=== PATIENT | female | born 1950 | race Caucasian/White ===

== ENCOUNTER → 2018-02-08 | Outpatient (CLI) | payer MEDICARE ==
--- NOTE | 2018-02-08 14:52 | US ---
EXAMINATION TYPE: US venous doppler duplex LE DATE OF EXAM: 02/08/2018 2:28 PM COMPARISON: US CLINICAL HISTORY: M79.605 Pain in left lower leg. SIDE PERFORMED: Bilateral TECHNIQUE: The lower extremity deep venous system is examined utilizing real time linear array sonog nayan with graded compression, doppler sonography and color-flow sonography. VESSELS IMAGED: Common Femoral Vein Deep Femoral Vein Greater Saphenous Vein * Femoral Vein Popliteal Vein Small Saphenous Vein * Proximal Calf Veins (* superficial vessels) Grayscale, color doppler, spectral doppler imaging performed of the deep veins of the lower extremiti es. There is normal flow, compressibility, vascular waveforms. Right Leg: Negative for DVT Left Leg: Negative for DVT IMPRESSION: No sonographic evidence of deep venous thrombosis within either lower extremity.
== END | disposition home or self-care (01) ==
LOC: RADUSWWP 13:57
PROVIDERS: ATTEND Family Medicine
DX: M79.662 Pain in left lower leg (principal)
CPT/HCPCS: 93970

== ENCOUNTER → 2018-11-03 | Outpatient (CLI) | payer MEDICARE ==
[~2018-11-03] MED LIST: REGADENOSON 0.4 MG/5 ML SYRINGE IV ONE
--- NOTE | 2018-11-03 11:21 | P.STRESS ---
- Stress Test Note Stress Test Results/Findings: Exam Performed: NM stress lexiscan cardiolite Exam Date: 11/03/18 Reason for Exam: CP Height: 5 ft Weight: 90.718 kg Protocol: LEXISCAN CARDIOLITE Stage: NA Duration of Exercise: NA Resting Heart Rate: 72 Resting Blood Pressure: 151/55 Maximum Achieved Heart Rate: 98 Maximum Achieved Blood Pressure: 165/62 85% PMHR: 131 100% PMHR: 154 METS: NA Technologist Comment: Stress Test Results/Findings: Baseline 170 beats a minute, Baseline blood pressure 150/55 mmHg Patient received Lexiscan infusion per protocol Normal twelve-lead ECG at baseline Patient complaining of nausea No ECG abnormalities noted No arrhythmias noted Nuchal portion of the stressors will be reported separately
--- NOTE | 2018-11-03 12:24 | NM ---
EXAMINATION TYPE: NM stress lexiscan cardiolite DATE OF EXAM: 11/03/2018 COMPARISON: NONE HISTORY: TECHNIQUE: After the intravenous administration of 9.85 mCi Tc 99m Sestamibi - Cardiolite resting SP ECT images acquired 55 minutes post injection. The patient received 0.4mg Lexiscan, 24.7 mCi Tc 99m Sestamibi - Stress images obtained [address] injection FINDINGS: Review of stress and rest SPECT images demonstrates question of a small focal area involving the ante rior lateral margin of the myocardium.. Gated analysis shows normal wall motion with an estimated le ft ventricular ejection fraction of 62 %. IMPRESSION: 1. Small focal area of perfusion defect on stress images within the anteroapical portion myocardium m ay be artifactual rather than representing a small area of stress-induced reversible ischemia. Correl ate clinically.
== END ==
LOC: RADNMMAIN 08:38
PROVIDERS: ATTEND Family Medicine
DX: R07.9 Chest pain, unspecified (principal)
CPT/HCPCS: 93017; 78452; A9500; J2785

== ENCOUNTER → 2019-01-06 | Outpatient (CLI) | payer MEDICARE ==
--- NOTE | 2019-01-06 15:44 | BD ---
EXAMINATION TYPE: Axial Bone Density DATE OF EXAM: 01/06/2019 COMPARISON: 2016 CLINICAL HISTORY: Z 78.0 Height: 4 FT 11 1/2 IN Weight: 226 FRAX RISK QUESTIONS: RISK FACTORS HISTORY OF: Active: YES Postmenopausal woman: AGE 57 APPROX MEDICATIONS: Additional Medications: VERAPAMIL, LISINOPRIL, OPEPRAZOLE, Additional History: ALEX KNEE REPLACEMENTS EXAM MEASUREMENTS: Bone mineral densitometry was performed using the [employer] System. Bone mineral density as measured about the Lumbar spine is: ----- L1-L4(G/cm2): 1.268 T Score Values are as follows: ----- L2: 0.2 ----- L3: 1.2 ----- L4: 0.7 ----- L1-L4: 0.7 Bone mineral density has: INCREASED 4.6 % since study of: 2016 Bone mineral density about the R hip (g/cm2): 0.927 Bone mineral density about the L hip (g/cm2): 0.937 T Score values are as follows: -----R Neck: -0.8 -----L Neck: -0.7 -----R Total: 0.0 -----L Total: 0.0 Bone mineral density has: DECREASED -7.8 % since study of: 2016 IMPRESSION: Normal (Values between +1 and -1 indicate normal bone mass). Consider repeating this study in 5 year s or sooner if there is some new clinical indication. NOTE: T-SCORE=SD OF THE YOUNG ADULT MEAN.
--- NOTE | 2019-01-10 08:33 | MM ---
Reason for exam: screening (asymptomatic). Last mammogram was performed 3 years and 1 month ago. History: Patient is postmenopausal. Physical Findings: A clinical breast exam by your physician is recommended on an annual basis and results should be correlated with mammographic findings. MG 3D Screening Mammo W/Cad Bilateral CC and MLO view(s) were taken. Prior study comparison: December 21, 2015, bilateral MG 3d screening mammo w/cad. October 08, 2011, bilateral digital screening mammo w/CAD. There are scattered fibroglandular densities. No significant changes when compared with prior studies. ASSESSMENT: Benign, BI-RAD 2 RECOMMENDATION: Routine screening mammogram of both breasts in 1 year.
== END | disposition home or self-care (01) ==
LOC: RADMAMWWP 13:01
PROVIDERS: ATTEND Family Medicine
DX: Z12.31 Encounter for screening mammogram for malignant neoplasm of breast (principal); Z78.0 Asymptomatic menopausal state
CPT/HCPCS: 77063; 77067; 77080

== ENCOUNTER → 2020-04-30 | Outpatient (CLI) | payer MEDICARE | END | disposition home or self-care (01) | LOC: LABWHC1 10:00 | PROVIDERS: ATTEND Family Medicine | DX: Z20.828 Contact with and (suspected) exposure to other viral communicable diseases (principal) | CPT/HCPCS: U0003; C9803 ==

== ENCOUNTER 2020-05-03 16:05 | Emergency (ER) | payer MEDICARE ==
[2020-05-03] MEDS ORDERED: SODIUM CHLORIDE 0.9% 1,000 ML IV ONE (16:27)
[2020-05-03] MEDS ORDERED: ACETAMINOPHEN TAB 500 MG TAB PO STA (16:27)
[2020-05-03] MEDS ORDERED: SODIUM CHLORIDE 0.9% 1,000 ML IV SCH (16:30)
--- NOTE | 2020-05-03 16:30 | ED ---
General Adult HPI - General Source: patient, RN notes reviewed, old records reviewed Mode of arrival: ambulatory Limitations: no limitations <Melody Albrecht - Last Filed: 05/03/20 18:51> <Urmila Christian - Last Filed: 05/12/20 01:14> - General Chief complaint: Recheck/Abnormal Lab/Rx Stated complaint: + Covid Time Seen by Provider: 05/03/20 16:16 - History of Present Illness Initial comments: Patient is a 70-year-old female who presents emergency department today with chief complaint of cough congestion nausea diarrhea and weakness. Patient reportedly was tested for Covid that her primary care doctor's office this week and was informed today that she had a positive test. Patient was told to come here by her PCP. She states that she mainly has this nonproductive cough, and denies significant dyspnea. States that her legs feel achy. She denies any lower extremity swelling. She reports that she's not had Motrin or Tylenol today. (Melody Albrecht) - Related Data Home Medications Medication Instructions Recorded Confirmed LORazepam [Ativan] 0.5 mg PO BID PRN 03/22/14 01/09/15 Omeprazole [PriLOSEC] 20 mg PO AC-BRKFST 03/22/14 01/09/15 PARoxetine [Paxil] 20 mg PO DAILY 03/22/14 01/11/15 Verapamil HCl [Verapamil ER] 240 mg PO DAILY 03/22/14 01/09/15 Previous Rx's Medication Instructions Recorded Hydrocodone/Acetaminophen [[place] 1 each PO Q6HR PRN #40 tab 01/11/15 5-325] Ondansetron Odt [Zofran Odt] 4 mg PO Q8HR PRN #12 tab 05/03/20 Allergies Allergy/AdvReac Type Severity Reaction Status Date / Time No Known Allergies Allergy Verified 05/03/20 16:10 Review of Systems ROS Other: All systems not noted in ROS Statement are negative. <Melody Albrecht - Last Filed: 05/03/20 18:51> ROS Other: All systems not noted in ROS Statement are negative. <Urmila Christian - Last Filed: 05/12/20 01:14> ROS Statement: Those systems with pertinent positive or pertinent negative responses have been documented in the HPI. Past Medical History Past Medical History: GERD/Reflux, Hypertension, Sleep Apnea/CPAP/BIPAP Additional Past Medical History / Comment(s): hx petic ulcer History of Any Multi-Drug Resistant Organisms: None Reported Past Surgical History: Heart Catheterization, Orthopedic Surgery, Tonsillectomy, Tubal Ligation Additional Past Surgical History / Comment(s): rt knee arthroscopy Past Anesthesia/Blood Transfusion Reactions: No Reported Reaction Past Psychological History: Anxiety Smoking Status: Never smoker Past Alcohol Use History: None Reported Past Drug Use History: None Reported - Past Family History Mother Family Medical History: No Reported History <Melody Albrecht - Last Filed: 05/03/20 18:51> General Exam Limitations: no limitations General appearance: alert, in no apparent distress Head exam: Present: atraumatic, normocephalic, normal inspection Eye exam: Present: normal appearance, PERRL, EOMI. Absent: scleral icterus, conjunctival injection, periorbital swelling ENT exam: Present: normal exam, mucous membranes moist Neck exam: Present: normal inspection. Absent: tenderness, meningismus, ly mphadenopathy Respiratory exam: Present: normal lung sounds bilaterally. Absent: respiratory distress, wheezes, rales, rhonchi, stridor Cardiovascular Exam: Present: regular rate, normal rhythm, normal heart sounds. Absent: systolic murmur, diastolic murmur, rubs, gallop, clicks GI/Abdominal exam: Present: soft, normal bowel sounds. Absent: distended, tenderness, guarding, rebound, rigid Extremities exam: Present: normal inspection, full ROM, normal capillary refill. Absent: tenderness, pedal edema, joint swelling, calf tenderness Back exam: Present: normal inspection Neurological exam: Present: alert, oriented X3, CN II-XII intact Psychiatric exam: Present: normal affect, normal mood Skin exam: Present: warm, dry, intact, normal color. Absent: rash <Melody Albrecht - Last Filed: 05/03/20 18:51> - General Exam Comments Initial Comments: 70-year-old female. Alert and oriented. No distress. (Melody Albrecht) Course Vital Signs 05/03/20 05/03/20 05/03/20 16:07 16:30 18:38 Temperature 97.8 F 97.9 F Pulse Rate 99 84 Respiratory 18 16 16 Rate Blood Pressure 142/87 144/80 O2 Sat by Pulse 97 96 Oximetry Medical Decision Making - Lab Data Result diagrams: 05/03/20 16:27 05/03/20 16:27 - Radiology Data Radiology results: report reviewed <Vibha Albrechtily - Last Filed: 05/03/20 18:51> - Lab Data Result diagrams: 05/03/20 16:27 05/03/20 16:27 <Urmila Christian - Last Filed: 05/12/20 01:14> - Medical Decision Making 62-year-old female presents emergency murmurs today with body aches nonproductive cough and generalized weakness and sore throat after being diagnosed with coving 19 today. She's been having symptoms for the past 3 days. At this time patient's labs reviewed. She had mild inflammation of CRP. LDH was within normal limits. D-dimer 0.77. She denies any active chest pain or significant shortness of breath. Patient was found to be 97-98% of oxygen on room air. Patient was given Tylenol today given IV fluids. Discussed that her lab work was otherwise relatively unremarkable. I discussed without requiring oxygen she does not admission criteria at this time. I did discuss with Patient to monitor symptoms closely and if she has any worsening signs or symptoms and to check her pulse ox at home to return to the ER seems to be worsening. I discussed symptomatic treatment with Zofran Motrin Tylenol. I discussed the importance of vitamin D and keeping hydrated. QUESTIONS answered. (Melody Albrecht) I was available for consultation in the emergency department. The history and physical exam were done by the midlevel provider. I was consulted for this patients care. I reviewed the case with the midlevel provider and based on t heir presentation of the patient, I agree with the assessment, medical decision making and plan of care as documented. Chart was dictated using [employer] dictation software. Attempts were made to corre ct any dictation errors however some typographical errors may persist. Patient was seen during a national state of emergency due to the Covid-19 pandemic. (Urmila Christian) - Lab Data Lab Results 05/03/20 05/03/20 05/03/20 Range/Units 16:27 16:27 16:27 WBC 3.5 L (3.8-10.6) k/uL RBC 3.89 (3.80-5.40) m/uL Hgb 11.7 (11.4-16.0) gm/dL Hct 35.3 (34.0-46.0) % MCV 90.8 (80.0-100.0) fL MCH 30.0 (25.0-35.0) pg MCHC 33.1 (31.0-37.0) g/dL RDW 13.3 (11.5-15.5) % Plt Count 214 (150-450) k/uL Neutrophils % 59 % Lymphocytes % 30 % Monocytes % 7 % Eosinophils % 2 % Basophils % 1 % Neutrophils # 2.1 (1.3-7.7) k/uL Lymphocytes # 1.0 (1.0-4.8) k/uL Monocytes # 0.2 (0-1.0) k/uL Eosinophils # 0.1 (0-0.7) k/uL Basophils # 0.0 (0-0.2) k/uL PT 10.2 (9.0-12.0) sec INR 1.0 (<1.2) APTT 21.5 L (22.0-30.0) sec D-Dimer 0.77 H (<0.60) mg/L FEU Sodium 137 (137-145) mmol/L Potassium 4.6 (3.5-5.1) mmol/L Chloride 109 H (98-107) mmol/L Carbon Dioxide 21 L (22-30) mmol/L Anion Gap 7 mmol/L BUN 13 (7-17) mg/dL Creatinine 0.65 (0.52-1.04) mg/dL Est GFR (CKD-EPI)AfAm >90 (>60 ml/min/1.73 sqM) Est GFR (CKD-EPI)NonAf >90 (>60 ml/min/1.73 sqM) Glucose 105 H (74-99) mg/dL Plasma Lactic Acid Gt (0.7-2.0) mmol/L Calcium 8.6 (8.4-10.2) mg/dL Magnesium 1.7 (1.6-2.3) mg/dL Ferritin 33.9 (10.0-291.0) ng/mL Total Bilirubin 0.4 (0.2-1.3) mg/dL AST 24 (14-36) U/L ALT 17 (4-34) U/L Alkaline Phosphatase 158 H (38-126) U/L Lactate Dehydrogenase 375 (313-618) U/L C-Reactive Protein 11.7 H (<10.0) mg/L Total Protein 6.7 (6.3-8.2) g/dL Albumin 3.6 (3.5-5.0) g/dL Procalcitonin (0.02-0.09) ng/mL 05/03/20 05/03/20 Range/Units 16:27 16:27 WBC (3.8-10.6) k/uL RBC (3.80-5.40) m/uL Hgb (11.4-16.0) gm/dL Hct (34.0-46.0) % MCV (80.0-100.0) fL MCH (25.0-35.0) pg MCHC (31.0-37.0) g/dL RDW (11.5-15.5) % Plt Count (150-450) k/uL Neutrophils % % Lymphocytes % % Monocytes % % Eosinophils % % Basophils % % Neutrophils # (1.3-7.7) k/uL Lymphocytes # (1.0-4.8) k/uL Monocytes # (0-1.0) k/uL Eosinophils # (0-0.7) k/uL Basophils # (0-0.2) k/uL PT (9.0-12.0) sec INR (<1.2) APTT (22.0-30.0) sec D-Dimer (<0.60) mg/L FEU Sodium (137-145) mmol/L Potassium (3.5-5.1) mmol/L Chloride (98-107) mmol/L Carbon Dioxide (22-30) mmol/L Anion Gap mmol/L BUN (7-17) mg/dL Creatinine (0.52-1.04) mg/dL Est GFR (CKD-EPI)AfAm (>60 ml/min/1.73 sqM) Est GFR (CKD-EPI)NonAf (>60 ml/min/1.73 sqM) Glucose (74-99) mg/dL Plasma Lactic Acid Gt 1.3 (0.7-2.0) mmol/L Calcium (8.4-10.2) mg/dL Magnesium (1.6-2.3) mg/dL Ferritin (10.0-291.0) ng/mL Total Bilirubin (0.2-1.3) mg/dL AST (14-36) U/L ALT (4-34) U/L Alkaline Phosphatase (38-126) U/L Lactate Dehydrogenase (313-618) U/L C-Reactive Protein (<10.0) mg/L Total Protein (6.3-8.2) g/dL Albumin (3.5-5.0) g/dL Procalcitonin 0.06 (0.02-0.09) ng/mL 05/03/20 17:13 EKG performed at 1709 showed normal sinus rhythm normal EKG. Ventricular rate of 82 bpm. AL interval is 162 ms. QRS duration is 84 ms. QT QTc is 400/467 ms . No evidence of ST elevation. (Melody Albrecht) - Radiology Data Chest x-rays be negative for acute cardio pulmonary process. (Melody Albrecht) Disposition Is patient prescribed a controlled substance at d/c from ED?: No Time of Disposition: 18:53 <Melody Albrecht - Last Filed: 05/03/20 18:51> <Urmila Christian - Last Filed: 05/12/20 01:14> Clinical Impression: COVID-19 Disposition: HOME SELF-CARE Condition: Good Instructions (If sedation given, give patient instructions): Viral Syndrome (ED) Additional Instructions: Please use medication as discussed. Alternating between Tylenol and Motrin every 4-6 hours. Patient should rest, remain hydrated. Please follow up with family doctor if symptoms have not improved over the next two days. Please return to the emergency room if your symptoms increase or worsen or for any other concerns.. You have recently been diagnosed with having the coronavirus disease 2019 (COVID-19). As of today, you are well enough to manage your illness at home. Once you get home, you should rest, stay hydrated, and get plenty of sleep. You may continue to feel body aches, fatigue and/or loss of taste and smell for several days, which are common after a serious viral illness. If your symptoms worsen, call your doctor or seek immediate medical attention. You MUST self-isolate (quarantine) at home until you can stop self-isolating after these 3 things have happened: 1. You have not had a fever (temperature < 100.0? Fahrenheit or < 38.0? Celsius) consistently for at least 72 hours without taking fever reducing medications (e.g. aspirin, acetaminophen), AND 2. Your respiratory symptoms are improving; AND 3. At least 7 days have passed since your illness started When returning home, please follow the precautions below: WHO (people & pets to take into consideration) Self-isolate (quarantine) is mandatory, until you meet all 3 criteria stated above. Be especially cautious if there are elderly people or anyone with significant medical issues in your home as these groups may have more severe symptoms from this infection. Do not handle pets or other animals while sick. WHERE (guidelines for maintaining safe distances) Stay at home except to get medical care. Do not go to work, school, or public areas; avoid using public transportation, ride-sharing, or taxis. As much as possible, you should stay in a specific room and away from other people in your home. If available, you should use a separate bathroom As advised by the Centers for Disease Control (CDC), you must stay in your home and minimize contact with others to avoid spreading the infection. WHAT (objects/surfaces to take into consideration) Avoid sharing personal household items. You should not share dishes, drinking glasses, cups, eating utensils, towels, or bedding with other people or pets in your home. After using these items, wash them thoroughly with soap and water. Clean all high-touch surfaces every day. High-touch surfaces include counters, tabletops, doorknobs, bathroom fixtures, toilets, phones, keyboards, tablets, and bedside tables. Also, clean any surfaces that may have blood, stool or bodily fluids on them. Use a household cleaning spray or wipe to clean high-touch surfaces; follow the label instructions. HOW (guidelines for hand washing and germ management) Clean your hands often. Wash your hands with soap and water for at least 20 seconds. If soap and water are not available, clean your hands with an alcohol-based hand armored car guard that contains at least 60% alcohol, covering all surfaces of your hands and rubbing them together until they feel dry. It is preferred that you use soap and water should if hands are visibly dirty. Avoid touching your eyes, nose, and mouth with unwashed hands. Cover your mouth and nose with a tissue when you cough or sneeze. Throw used tissues in a lined trash can. Immediately wash your hands with soap and water or hand armored car guard. WHEN (guidelines for seeking medical care) Take your temperature several times a days. Take motrin and tylenol. Call your doctor if you start to feel worse (increased congestion, chest pain, coughing or fevers). Monitor pulse oxygen. Seek emergency medical treatment if you have difficulty breathing Call ahead if possible and advise health care workers that you have tested positive for COVID-19 Ask for a facemask as you enter the facility. These steps will help the healthcare providers office to keep other people in the office or waiting room from getting infected or exposed. ? If possible, put on a facemask before emergency medical services arrive. What should I tell my close contacts? Household members, intimate partners, caregivers, and any person who has had close contact with you should monitor their health for symptoms of respiratory illness. They should call their healthcare provider if they develop symptoms that may be caused by COVID-19 including fever, cough, or shortness of breath Prescriptions: Ondansetron Odt [Zofran Odt] 4 mg PO Q8HR PRN #12 tab PRN Reason: Nausea Referrals: Bobby Tang MD [Primary Care Provider] - 1-2 days
--- NOTE | 2020-05-03 17:05 | XR ---
EXAMINATION: XR chest 1V portable DATE AND TIME: 05/03/2020 5:00 PM CLINICAL INDICATION: Suspected COVID-19 pneumonia TECHNIQUE: AP upright portable COMPARISON: 06/18/2011 FINDINGS: The lungs are clear. The pleural spaces are negative. The cardiac silhouette is not enlarged. The remainder of the mediastinal silhouette is unremarkable. The skeletal structures and soft tissues are negative for acute findings. IMPRESSION: NO ACUTE PROCESS.
[2020-05-03 17:16] LABS: Basophils % (A) 1 %; Eosinophils # (A) 0.1 k/uL (0-0.7); Eosinophils % (A) 2 %; HCT 35.3 % (34.0-46.0); HGB 11.7 gm/dL (11.4-16.0); Lymphocytes % (A) 30 %; MCHC 33.1 g/dL (31.0-37.0); MCV 90.8 fL (80.0-100.0); Mean Platelet Volume 8.7; Monocytes # (A) 0.2 k/uL (0-1.0); Monocytes % (A) 7 %; Neutrophils # (A) 2.1 k/uL (1.3-7.7); Neutrophils % (A) 59 %; Platelet Count 214 k/uL (150-450); RBC 3.89 m/uL (3.80-5.40); RDW 13.3 % (11.5-15.5); WBC 3.5 k/uL (3.8-10.6)
[2020-05-03 17:24] LABS: Potassium 4.6 mmol/L (3.5-5.1)
[2020-05-03 17:27] LABS: ALT 17 U/L (4-34); AST 24 U/L (14-36); African American GFR (CKD) >90 (>60 ml/min/1.73 sqM); Albumin 3.6 g/dL (3.5-5.0); Alkaline Phosphatase 158 U/L (38-126); Anion Gap 7 mmol/L; Blood Urea Nitrogen 13 mg/dL (7-17); C Reactive Protein 11.7 mg/L (<10.0); Calcium 8.6 mg/dL (8.4-10.2); Carbon Dioxide 21 mmol/L (22-30); Chloride 109 mmol/L (98-107); Glucose 105 mg/dL (74-99); LDH 375 U/L (313-618); Magnesium 1.7 mg/dL (1.6-2.3); Non-African American GFR(CKD) >90 (>60 ml/min/1.73 sqM); Sodium 137 mmol/L (137-145); Total Bilirubin 0.4 mg/dL (0.2-1.3); Total Protein 6.7 g/dL (6.3-8.2)
[2020-05-03 17:55] LABS: Prothrombin Time 10.2 sec (9.0-12.0)
[2020-05-03 18:00] LABS: D-Dimer 0.77 mg/L FEU (<0.60)
[2020-05-03 18:01] LABS: Partial Thromboplastin Time 21.5 sec (22.0-30.0)
[2020-05-03 18:38] VITALS: BP 144/80; PULSE 84; RESP 16; TEMP 97.9
[2020-05-04 04:27] LABS: Ferritin 33.9 ng/mL (10.0-291.0)
== END 2020-05-03 19:14 | disposition home or self-care (01) ==
LOC: EC 16:05
DX: U07.1 COVID-19 (principal); K21.9 Gastro-esophageal reflux disease without esophagitis; I10 Essential (primary) hypertension; G47.30 Sleep apnea, unspecified; F41.9 Anxiety disorder, unspecified; Z79.899 Other long term (current) drug therapy; Z99.89 Dependence on other enabling machines and devices
CPT/HCPCS: 36415; 71045; 80053; 82728; 83605; 83615; 83735; 84145; 85025; 85379; 85610; 85730; 86140; 87040; 93005; 96360; 99285

== ENCOUNTER 2021-03-16 18:13 | Emergency (ER) | payer MEDICARE ==
[2021-03-16 18:38] VITALS: TEMP 98.2
[2021-03-16 19:39] LABS: Basophils % (A) 0 %; Eosinophils # (A) 0.2 k/uL (0-0.7); Eosinophils % (A) 3 %; HCT 37.6 % (34.0-46.0); Lymphocytes # (A) 2.1 k/uL (1.0-4.8); Lymphocytes % (A) 25 %; MCH 29.5 pg (25.0-35.0); MCHC 31.9 g/dL (31.0-37.0); MCV 92.2 fL (80.0-100.0); Mean Platelet Volume 9.5; Monocytes # (A) 0.5 k/uL (0-1.0); Monocytes % (A) 5 %; Neutrophils # (A) 5.6 k/uL (1.3-7.7); Neutrophils % (A) 66 %; Platelet Count 385 k/uL (150-450); RBC 4.07 m/uL (3.80-5.40); RDW 13.4 % (11.5-15.5); WBC 8.5 k/uL (3.8-10.6)
[2021-03-16 19:49] LABS: ALT 14 U/L (4-34); AST 25 U/L (14-36); African American GFR (CKD) >90 (>60 ml/min/1.73 sqM); Albumin 4.3 g/dL (3.5-5.0); Alkaline Phosphatase 125 U/L (38-126); Anion Gap 11 mmol/L; Blood Urea Nitrogen 18 mg/dL (7-17); Calcium 9.4 mg/dL (8.4-10.2); Carbon Dioxide 19 mmol/L (22-30); Chloride 107 mmol/L (98-107); Glucose 169 mg/dL (74-99); Non-African American GFR(CKD) 88 (>60 ml/min/1.73 sqM); Potassium 4.8 mmol/L (3.5-5.1); Sodium 137 mmol/L (137-145); Total Bilirubin 0.6 mg/dL (0.2-1.3); Total Protein 7.4 g/dL (6.3-8.2)
--- NOTE | 2021-03-16 20:18 | XR ---
EXAMINATION TYPE: XR chest 2V DATE OF EXAM: 03/16/2021 COMPARISON: 05/03/2020 HISTORY: Cough TECHNIQUE: FINDINGS: Heart and mediastinum are normal. Lungs are clear. Diaphragm is normal. Bony thorax is inta ct. There is no pleural effusion. IMPRESSION: Normal chest. No change.
--- NOTE | 2021-03-16 21:00 | ED ---
URI HPI - General Chief Complaint: Upper Respiratory Infection Stated Complaint: chest pain, cough, SOB Time Seen by Provider: 03/16/21 19:00 Source: patient, RN notes reviewed Mode of arrival: ambulatory Limitations: no limitations - History of Present Illness Initial Comments: 70-year-old female presented emergency department complaining of upper resp iratory tract symptoms for the past several months. She notes that when she was cleaning out her dad's P and so she had a flareup went to urgent care and was told that she had no congestion and sent home. She notes that she's had ongoing symptoms since then. She notes that she has had Covid in both vaccines. She notes that she gets in coughing fits which caused her ribs to her. She also notes that she's had diarrhea on and off for the past month. She was otherwise a well-appearing 70-year-old female in no apparent distress or pain. She denied any chest pain headache nausea vomiting constipation fever fatigue chills. - Related Data Home Medications Medication Instructions Recorded Confirmed LORazepam [Ativan] 0.5 mg PO BID PRN 03/22/14 03/16/21 Omeprazole [PriLOSEC] 20 mg PO DAILY 03/22/14 03/16/21 Verapamil HCl [Verapamil ER] 240 mg PO DAILY 03/22/14 03/16/21 Atorvastatin [Lipitor] 20 mg PO DAILY 03/16/21 03/16/21 Levocetirizine Dihydrochloride 5 mg PO DAILY 03/16/21 03/16/21 [Xyzal] Loratadine [Claritin] 10 mg PO DAILY PRN 03/16/21 03/16/21 Meloxicam 7.5 mg PO BID 03/16/21 03/16/21 PARoxetine HCL [Paxil] 40 mg PO DAILY 03/16/21 03/16/21 lisinopriL 10 mg PO DAILY 03/16/21 03/16/21 Allergies Allergy/AdvReac Type Severity Reaction Status Date / Time amoxicillin Allergy Nausea & Verified 03/16/21 20:14 Vomiting Review of Systems ROS Statement: Those systems with pertinent positive or pertinent negative responses have been documented in the HPI. ROS Other: All systems not noted in ROS Statement are negative. Past Medical History Past Medical History: GERD/Reflux, Hypertension, Sleep Apnea/CPAP/BIPAP Additional Past Medical History / Comment(s): hx petic ulcer History of Any Multi-Drug Resistant Organisms: None Reported Past Surgical History: Heart Catheterization, Orthopedic Surgery, Tonsillectomy, Tubal Ligation Additional Past Surgical History / Comment(s): rt knee arthroscopy Past Anesthesia/Blood Transfusion Reactions: No Reported Reaction Past Psychological History: Anxiety Smoking Status: Never smoker Past Alcohol Use History: None Reported Past Drug Use History: None Reported - Past Family History Mother Family Medical History: No Reported History General Exam Limitations: no limitations General appearance: alert, in no apparent distress, obese Head exam: Present: atraumatic, normocephalic, normal inspection Eye exam: Present: normal appearance, PERRL, EOMI. Absent: scleral icterus, conjunctival injection, periorbital swelling ENT exam: Present: normal exam, mucous membranes moist Neck exam: Present: normal inspection Respiratory exam: Present: normal lung sounds bilaterally. Absent: respiratory distress, wheezes, rales, rhonchi, stridor Cardiovascular Exam: Present: regular rate, normal rhythm, normal heart sounds. Absent: systolic murmur, diastolic murmur, rubs, gallop, clicks GI/Abdominal exam: Present: soft, normal bowel sounds. Absent: distended, tenderness, guarding, rebound, rigid Extremities exam: Present: normal inspection, full ROM, normal capillary refill. Absent: tenderness, pedal edema, joint swelling, calf tenderness Neurological exam: Present: alert, oriented X3 Psychiatric exam: Present: normal affect, normal mood Skin exam: Present: warm, dry, intact, normal color. Absent: rash Course Vital Signs 03/16/21 03/16/21 18:35 21:27 Temperature 98.2 F Pulse Rate 87 76 Respiratory 20 18 Rate Blood Pressure 153/103 132/73 O2 Sat by Pulse 98 100 Oximetry Medical Decision Making - Medical Decision Making 70-year-old female complaining of upper respiratory tract symptoms the past month. Labs, chest x-ray, Covid test, influenza test ordered. Covid and influenza test negative. Labs unremarkable. Chest x-ray shows no acute cardiopulmonary process. DuoNeb ordered. Patient states that she is feeling better after the breathing treatment. Case discussed with Dr. Andrade, patient can discharge home with follow-up primary care. - Lab Data Result diagrams: 03/16/21 19:17 03/16/21 19:17 Lab Results 03/16/21 03/16/21 03/16/21 Range/Units 19:17 19:17 19:17 WBC 8.5 (3.8-10.6) k/uL RBC 4.07 (3.80-5.40) m/uL Hgb 12.0 (11.4-16.0) gm/dL Hct 37.6 (34.0-46.0) % MCV 92.2 (80.0-100.0) fL MCH 29.5 (25.0-35.0) pg MCHC 31.9 (31.0-37.0) g/dL RDW 13.4 (11.5-15.5) % Plt Count 385 (150-450) k/uL MPV 9.5 Neutrophils % 66 % Lymphocytes % 25 % Monocytes % 5 % Eosinophils % 3 % Basophils % 0 % Neutrophils # 5.6 (1.3-7.7) k/uL Lymphocytes # 2.1 (1.0-4.8) k/uL Monocytes # 0.5 (0-1.0) k/uL Eosinophils # 0.2 (0-0.7) k/uL Basophils # 0.0 (0-0.2) k/uL Sodium 137 (137-145) mmol/L Potassium 4.8 (3.5-5.1) mmol/L Chloride 107 (98-107) mmol/L Carbon Dioxide 19 L (22-30) mmol/L Anion Gap 11 mmol/L BUN 18 H (7-17) mg/dL Creatinine 0.71 (0.52-1.04) mg/dL Est GFR (CKD-EPI)AfAm >90 (>60 ml/min/1.73 sqM) Est GFR (CKD-EPI)NonAf 88 (>60 ml/min/1.73 sqM) Glucose 169 H (74-99) mg/dL Calcium 9.4 (8.4-10.2) mg/dL Total Bilirubin 0.6 (0.2-1.3) mg/dL AST 25 (14-36) U/L ALT 14 (4-34) U/L Alkaline Phosphatase 125 (38-126) U/L Total Protein 7.4 (6.3-8.2) g/dL Albumin 4.3 (3.5-5.0) g/dL Coronavirus (PCR) (Not Detectd) Influenza Type A RNA Not Detected (Not Detectd) Influenza Type B (PCR) Not Detected (Not Detectd) 03/16/21 Range/Units 19:17 WBC (3.8-10.6) k/uL RBC (3.80-5.40) m/uL Hgb (11.4-16.0) gm/dL Hct (34.0-46.0) % MCV (80.0-100.0) fL MCH (25.0-35.0) pg MCHC (31.0-37.0) g/dL RDW (11.5-15.5) % Plt Count (150-450) k/uL MPV Neutrophils % % Lymphocytes % % Monocytes % % Eosinophils % % Basophils % % Neutrophils # (1.3-7.7) k/uL Lymphocytes # (1.0-4.8) k/uL Monocytes # (0-1.0) k/uL Eosinophils # (0-0.7) k/uL Basophils # (0-0.2) k/uL Sodium (137-145) mmol/L Potassium (3.5-5.1) mmol/L Chloride (98-107) mmol/L Carbon Dioxide (22-30) mmol/L Anion Gap mmol/L BUN (7-17) mg/dL Creatinine (0.52-1.04) mg/dL Est GFR (CKD-EPI)AfAm (>60 ml/min/1.73 sqM) Est GFR (CKD-EPI)NonAf (>60 ml/min/1.73 sqM) Glucose (74-99) mg/dL Calcium (8.4-10.2) mg/dL Total Bilirubin (0.2-1.3) mg/dL AST (14-36) U/L ALT (4-34) U/L Alkaline Phosphatase (38-126) U/L Total Protein (6.3-8.2) g/dL Albumin (3.5-5.0) g/dL Coronavirus (PCR) Not Detected (Not Detectd) Influenza Type A RNA (Not Detectd) Influenza Type B (PCR) (Not Detectd) - Radiology Data Radiology results: report reviewed, image reviewed Chest x-ray: Normal chest. No change. Disposition Clinical Impression: Upper respiratory tract infection, Cough Disposition: HOME SELF-CARE Condition: Stable Instructions (If sedation given, give patient instructions): Upper Respiratory Infection (ED) Additional Instructions: Please return to the Emergency Department if symptoms worsen or any other concerns. Follow-up with primary care 1-2 days. Avoid any strenuous activity or exertion for the next several days. Is patient prescribed a controlled substance at d/c from ED?: No Referrals: Bobby Tang MD [Primary Care Provider] - 1-2 days Time of Disposition: 21:48
[2021-03-16] MEDS ORDERED: IPRATROPIUM-ALBUTEROL 3 ML NEB INHALATION STA (21:10)
[2021-03-16 21:28] VITALS: RESP 18
[2021-03-16 22:06] LABS: Appearance,Urine Clear (Clear); Bilirubin,Urine Negative (Negative); Blood,Urine Negative (Negative); Color,Urine Yellow; Glucose,Urine (UA) Negative (Negative); Ketones,Urine Negative (Negative); Leukocyte Esterase,Urine Negative (Negative); Nitrite,Urine Negative (Negative); PH, Urine 5.5 (5.0-8.0); Protein,Urine Negative (Negative); Specific Gravity,Urine 1.025 (1.001-1.035); Urobilinogen,Urine <2.0 mg/dL (<2.0)
[2021-03-16 22:14] VITALS: BP 142/62; PULSE 75
== END 2021-03-16 22:17 | disposition home or self-care (01) ==
LOC: EC 18:13
DX: J06.9 Acute upper respiratory infection, unspecified (principal); I10 Essential (primary) hypertension; K21.9 Gastro-esophageal reflux disease without esophagitis; F41.9 Anxiety disorder, unspecified; E66.9 Obesity, unspecified; Z79.1 Long term (current) use of non-steroidal anti-inflammatories (NSAID); Z79.899 Other long term (current) drug therapy; Z68.39 Body mass index [BMI] 39.0-39.9, adult
CPT/HCPCS: 36415; 71046; 80053; 81003; 85025; 87502; 87635; 99283

== ENCOUNTER → 2021-12-11 | Outpatient (CLI) | payer MEDICARE ==
--- NOTE | 2021-12-11 15:45 | CONS ---
CONSULTATION DATE OF SERVICE: 12/11/2021. 71-year-old lady has been evaluated in Sleep Center for possible obstructive sleep apnea-hypopnea syndrome. HISTORY OF PRESENT ILLNESS SLEEP-WAKE EVALUATION: The patient has history of obstructive sleep apnea diagnosed more than 10 years ago. At that time, she was started on treatment with CPAP but was not able to use equipment at that time and stopped treatment again more than 10 years ago. SLEEP SCHEDULE: Presently, her sleep schedule from around 9 or10 pm until 9 a.m. FALLING ASLEEP: Sometimes she has problems with falling asleep, although no TV in bedroom. DURING SLEEP: She sleeps on the side position with loud snoring and wakes up from sleep 3 times with 2 episodes of nocturia. Positive history of witnessed episodes of stopped breathing during sleep. She also wakes up with dry mouth. DURING THE DAY/SLEEP WAKE EVALUATION: In the morning, the patient wakes up tired, has problems with memory and anxiety. Usually does not take naps. [place] Sleepiness Scale is 5. PAST MEDICAL HISTORY: Positive for hypertension, hyperlipidemia, anxiety, borderline blood sugar, acid reflux, headaches. PAST SURGICAL HISTORY: Bilateral knee replacement. MEDICATIONS: Omeprazole 20 mg once a day, verapamil extended release 240 mg once a day, Paroxetine 40 mg once a day, atorvastatin 20 mg once a day, lisinopril 10 mg once a day, lorazepam 0.5 mg on p.r.n. basis, last usage 2 days ago. SOCIAL HISTORY: Negative for smoking or using alcohol. FAMILY HISTORY: Positive for hypertension, heart problems, sleep apnea, diabetes. REVIEW OF SYSTEMS: Loud snoring, multiple awakenings from sleep. PHYSICAL EXAMINATION: GENERAL: lady without distress. BP 146/89, HR 89, RR 18, height 5 feet 0 inches, weight 211.2, body mass index 41.2, temperature 97, oxygen saturation at room air 97%. Oropharynx: Low position of soft palate, Mallampati 4. Neck is wide 16 inches in circumference. NECK: Supple, no JVD. Thyroid is not palpable. LUNGS: Clear to percussion and to auscultation. Good air exchange. No wheezing or rhonchi. HEART: S1, S2 regular. No murmurs, gallops, or rubs. ABDOMEN: Obese. Soft and nontender. Bowel sounds are present. No organomegaly appreciated. EXTREMITIES: No clubbing or cyanosis. MEDICAL ASSISTANT CARDIOLOGY: Awake, alert, and oriented X3. Cranial nerves 2 to 7 intact. There is no fasciculation or atrophy. noted. No focal deficits observed. IMPRESSION: 1. Loud snoring, episodes of stopped breathing during sleep, extremely low position of soft palate, Mallampati 4, wide neck, 16 inches in circumference, history of obstructive sleep apnea in the past; obstructive sleep apnea-hypopnea syndrome. 2. Obesity; body mass index 41.2. 3. Hypertension. 4. Hyperlipidemia. 5. Anxiety. 6. Borderline blood sugar. 7. Acid reflux. 8. Headaches. 9. Status post bilateral knee replacement. PLAN: 1. Polysomnography for evaluation of patient's breathing during sleep. 2. CPAP/BiPAP titration if sleep study confirms obstructive sleep apnea-hypopnea syndrome. 3. Preferable position during sleep on the side. 4. No driving if patient feels any sleepiness. 5. I will see patient for follow up visit to explain results of testing and following plan. Thank you very much for referring this patient for consultation. Sincerely, Juan José Vernon MD, PhD, FAASM Diplomat of [employer] Sleep Medicine Board of [place] [employer] Secondary English Teacher of [facility] [place] MMODL / IJN: [id number] /
== END | disposition home or self-care (01) ==
LOC: SLEEP 14:00
PROVIDERS: ATTEND Internal Medicine
DX: G47.33 Obstructive sleep apnea (adult) (pediatric) (principal); E66.9 Obesity, unspecified; I10 Essential (primary) hypertension; E78.5 Hyperlipidemia, unspecified; F41.9 Anxiety disorder, unspecified; K21.9 Gastro-esophageal reflux disease without esophagitis; R51.9 Headache, unspecified; Z68.41 Body mass index [BMI] 40.0-44.9, adult; Z96.653 Presence of artificial knee joint, bilateral
CPT/HCPCS: 99211

== ENCOUNTER → 2022-05-28 | Outpatient (CLI) | payer MEDICARE ==
--- NOTE | 2022-05-28 16:15 | NM ---
EXAMINATION TYPE: NM stress lexiscan cardiolite DATE OF EXAM: 05/28/2022 COMPARISON: Prior study 2018 HISTORY: History of hypertension, diabetes, and hypercholesterolemia with chest pain TECHNIQUE: After the intravenous administration of 9.3 mCi Tc 99m Sestamibi - Cardiolite resting SPE CT images acquired 60 minutes post injection. The patient received 0.4mg Lexiscan, 26 mCi Tc 99m Sestamibi - Stress images obtained 45 minutes post injection FINDINGS: Review of stress and rest SPECT images demonstrates no distinct perfusion abnormality. Gated analysi s shows normal wall motion with an estimated left ventricular ejection fraction of 58 %. IMPRESSION: No scintigraphic evidence for reversible ischemia on current study.
--- NOTE | 2022-05-28 20:41 | CA ---
Lexiscan Nuclear Stress Test Report Name: Elda Escoto Exam Date: 05/28/2022 09:45 Exam Location: [place] Stress Ht (in): 60 Wt (lb): 200 BSA: 1.87 Ordering Phys: Bobby Tang MD Referring Phys: BOBBY TANG,, Technologist: Mateo Jackson Age: 72 Gender: F : 1950 Procedure CPT: Indications: R07.89 chest pain ICD-10 Codes: Patient History: Medications: LISINOPRIL, OMEPERAZOLE, PAROXITINE, VERAPAMIL, ATIVAN, ATORVASTATIN, LIPITOR Meds past 24 hrs: Pretest Chest Pain: STRESS TEST Lexiscan Protocol Exercise Duration (min:sec): 01:[address] Depressions (mm): Angina Score: Jasso Score: Resting HR (bpm): 76 Peak HR (bpm): 97 Resting BP (mmHg): 167 / 75 Peak BP (mmHg): 178 / 75 MPHR: 150 Target HR: 128 % MPHR: 65 METS: 1.0 Total Dose: Peak Dose: Atropine: Double Product: 03984 BP Response: Stress Termination: INFUSION COMPLETE Stress Symptoms: NO SYMPTOMS Stress Summary: ECG ANALYSIS Resting ECG: Stress ECG: CONCLUSIONS Baseline EKG revealed normal sinus rhythm without significant ST-T changes. With Lexiscan administration heart rate went up from 78-96 bpm and the blood pressure changed from 167/75- 158/84. Patient did not have any significant symptoms. By EKG criteria this is a unremarkable Lexiscan stress test. The nuclear scan results which are more pertinent will be reported by the radiologist Dr. Ramírez Fitch MD (Electronically Signed) Final Date: 28 May 2022 20:40
--- NOTE | 2022-05-28 21:21 | CA ---
Transthoracic Echo Report Name: Elda Escoto Age: 72 Gender: F : 1950 Exam Date: 05/28/2022 11:10 Exam Location: [place] Echo Ht (in): 60 Wt (lb): 200 Ordering Physician: Bobby Tang MD Attending/Referring Phys: [id number], [place] [employer]ment Specialist Misa Villanueva, [facility] Procedure CPT: Indications: R07.89 chest pain Cardiac Hx: Technical Quality: Contrast 1: Total Dose (mL): Contrast 2: Total Dose (mL): MEASUREMENTS (Male / Female) Normal Values 2D ECHO LA Volume 55.6 cm??? 18 - 58 / 22 - 52 cm??? M-MODE Aortic Root Diameter MM 3.3 cm LA Systolic Diameter MM 3.6 cm LA Ao Ratio MM 1.1 MV E Point Septal Separation 0.8 cm AV Cusp Separation MM 1.4 cm DOPPLER MV Area PHT 2.9 cm??? Mitral E Point Velocity 58.9 cm/s Mitral A Point Velocity 102.8 cm/s Mitral E to A Ratio 0.6 MV Deceleration Time 259.6 ms MV E' Velocity 5.3 cm/s Mitral E to MV E' Ratio 11.2 TR Peak Velocity 243.0 cm/s TR Peak Gradient 23.6 mmHg Right Ventricular Systolic Press 28.5 mmHg FINDINGS Left Ventricle Left ventricular ejection fraction is estimated at 55 %. Mildly increased left ventricular wall thickness. Right Ventricle Normal right ventricular size and function. Right ventricular systolic pressure within normal limits. Right Atrium Normal right atrial size. Left Atrium Mildly increased left atrial volume. Mitral Valve Structurally normal mitral valve. Mild mitral regurgitation. Aortic Valve Trileaflet aortic valve. Aortic valve sclerosis. Mild aortic regurgitation. Tricuspid Valve Structurally normal tricuspid valve. Mild tricuspid regurgitation. Pulmonic Valve Structurally normal pulmonic valve. Pericardium Echo free space anterior to the right ventricle likely represents a fat pad. Aorta Normal size aortic root and proximal ascending aorta. CONCLUSIONS Normal left ventricle size and systolic function with borderline concentric LVH. Mild mitral and tricuspid insufficiency. No clearcut pericardial effusion. Possible fat pad. Previewed by: Dr. Ramríez Fitch MD (Electronically Signed) Final Date: 28 May 2022 21:20
== END | disposition home or self-care (01) ==
LOC: RADNMMAIN 08:01
PROVIDERS: ATTEND Family Medicine
DX: I08.1 Rheumatic disorders of both mitral and tricuspid valves (principal); I10 Essential (primary) hypertension; E11.9 Type 2 diabetes mellitus without complications; E78.00 Pure hypercholesterolemia, unspecified
CPT/HCPCS: 93017; 93306; 78452; A9500; J2785

== ENCOUNTER → 2022-12-03 | Outpatient (CLI) | payer MEDICARE ==
--- NOTE | 2022-12-04 20:18 | MM ---
Reason for Exam: Screening (asymptomatic). Last mammogram was performed 3 year(s) and 11 month(s) ago. Patient History: Menarche at age 14. First Full-Term at age 23. Postmenopausal. Risk Values: Telma 5 year model risk: 1.5%. NCI Lifetime model risk: 4.5%. Prior Study Comparison: 10/08/2011 Bilateral Screening Mammogram, [facility]. 12/21/2015 Bilateral Screening Mammogram, [facility]. 01/06/2019 Bilateral Screening Mammogram, [facility]. Tissue Density: There are scattered fibroglandular densities. Findings: Analyzed By CAD. 5 mm area of low density circumscribed central nodularity anterior left breast not clearly seen previously. The imaging characteristics suggest a benign etiology which can be reassessed in 6 months. There is chronic nodularity in the lateral left breast. Benign bilateral secretory and vascular calcifications. Otherwise, no significant change. Overall Assessment: Probably benign, BI-RAD 3 Management: Diagnostic Mammogram of the left breast in 6 months. For a suspected tiny 5 mm cyst anterior left breast. Patient should continue monthly self-breast exams. A clinical breast exam by your physician is recommended on an annual basis. This exam should not preclude additional follow-up of suspicious palpable abnormalities. Note on Telma scores and lifetime risk: 1. A Telma score greater than 3% is considered moderate risk. If this is the case, consider specialist referral to assess eligibility for a risk reducing agent. 2. If overall lifetime risk for the development of breast cancer is 20% or higher, the patient may qualify for future screening with alternating mammogram and breast MRI. Electronically signed and approved by: Danny Riley M.D. Radiologist
== END | disposition home or self-care (01) ==
LOC: RADMAMWWP 15:41
PROVIDERS: ATTEND Family Medicine
DX: Z12.31 Encounter for screening mammogram for malignant neoplasm of breast (principal); Z78.0 Asymptomatic menopausal state
CPT/HCPCS: 77063; 77067

== ENCOUNTER → 2023-02-26 | Outpatient (CLI) | payer MEDICARE ==
--- NOTE | 2023-02-26 14:53 | P.PN ---
Subjective DATE: 02/26/2023 FOLLOW UP VISIT. Patient with obstructive sleep apnea hypopnea syndrome return to sleep center for follow-up visit. Recently patient had sleep study which documented obstructive sleep apnea hypopnea syndrome. Patient was initiated on PAP therapy and today is first visit after treatment was started. Patient was able to use PAP equipment every night for the whole night. The patient does not have significant problems with the mask, PAP pressure and humidification. [place] sleepiness scale is 11. Patient explained then on CPAP she feels better with her relationship to quality of sleep and feeling during the day.. I checked information from PAP unit. PAP unit pressure maximal inspiratory pressure 20, minimal expiratory pressure 6, average pressure 18/14 cm H2O. Usage is 100 % for more then 4 hours, average 8.75 hours per night. Leak is 32.8 l/m, which is in acceptable range. Apnea Hypopnea Index is 8.6, which is slightly increased but showed but showed normalization comparing with the results of sleep study when it was 51.3. MEDICATIONS:1. Verapamil 240 mg once a day 2. Lisinopril 3. Atorvastatin 4. Omeprazole During physical exam: GENERAL: A pleasant patient without any distress. VITAL SIGNS: BP 125/73, HR 87, RR 16 , weight 227.8, temperature 97.3, oxygen saturation at room air 95% . HEENT: PERRLA, EOMI.low position of soft palate, Mallapati 4 . NECK: Supple. No JVD. LUNGS: Clear to percussion and to auscultation. Good air exchange. No wheezing or rhonchi. HEART: S1, S2 regular. ABDOMEN: Soft and nontender. Obese EXTREMITIES: No clubbing or cyanosis. CLINICAL NURSING INSTRUCTOR: Awake, alert, and oriented x3. No focal deficit. Impressions: 1. Severe bstructive sleep apnea-hypopnea syndrome. Apnea-hypopnea index during diagnostic sleep study 51.3. Patient demonstrated great compliance with treatment, benefiting from treatment. 2. Obesity. 3. Hypertension. 4. Hyperlipidemia. 5. History of anxiety. 6. Acid reflux. 7. History of headaches. 8. Status post bilateral knee replacement. Plan: 1. Continue using PAP equipment every night for the whole night. 2. To change air filter at least 1-2 times per month. 3. PAP unit should stay lower then position of the head. 4. Advised patient to remove all remaining water from humidifier canister daily and make it dry after each usage. Refill canister with fresh distilled water before each usage. 5. Sleep hygiene with regular time in bed for at least 8 hours. 6. Precautions related to driving. No driving if feel any sleepiness. 7. I will maintain prescription for PAP supplies including mask, tube, filters. 8. Follow up visit in 6 months or earlier if patient has any problems. 9. Watching and losing weight. Thank you very much for allowing me to participate in the management of your patient. Juan José Vernon MD, PhD, FAASM. Diplomat of [place] [employer], Sleep Medicine Board by [place] [employer] Neurodiagnostic Technologist of [facility] [place]
== END ==
LOC: 3 N SLEEP 14:19
PROVIDERS: ATTEND Internal Medicine
DX: G47.33 Obstructive sleep apnea (adult) (pediatric) (principal); E66.9 Obesity, unspecified; E78.5 Hyperlipidemia, unspecified; I10 Essential (primary) hypertension; K21.9 Gastro-esophageal reflux disease without esophagitis; Z79.899 Other long term (current) drug therapy; Z96.653 Presence of artificial knee joint, bilateral; Z86.69 Personal history of other diseases of the nervous system and sense organs; Z99.89 Dependence on other enabling machines and devices; Z88.0 Allergy status to penicillin
CPT/HCPCS: 99212

== ENCOUNTER → 2023-02-26 | Outpatient (CLI) | payer MEDICARE ==
--- NOTE | 2023-02-26 15:15 | XR ---
EXAM TYPE: LUMBAR SPINE X RAY SERIES COMPARISON: NONE HISTORY: Pain TECHNIQUE: 3 views are submitted. FINDINGS: Diffuse osteopenia with multilevel mild degenerative disc disease more moderate changes at L4-5. Mya re facet arthropathy L4-5 and L5-S1 with grade 1 anterolisthesis suspected foraminal encroachment at both levels. Vascular calcifications noted. IMPRESSION: 1. Multilevel [id number] degenerative disc disease most marked at L4-L5 there is severe facet a rthropathy and grade 1 anterior. Suspect foraminal encroachment at both levels..
== END | disposition home or self-care (01) ==
LOC: RADXRMAIN 14:47
PROVIDERS: ATTEND Family Medicine
DX: M51.36 Other intervertebral disc degeneration, lumbar region (principal); M47.816 Spondylosis without myelopathy or radiculopathy, lumbar region
CPT/HCPCS: 72100

== ENCOUNTER → 2023-04-08 | Outpatient (CLI) | payer MEDICARE ==
--- NOTE | 2023-04-08 13:38 | MR ---
EXAMINATION TYPE: MR lumbar spine wo con DATE OF EXAM: 04/08/2023 COMPARISON: None HISTORY: Lower back pain, in the center, for several months. TECHNIQUE: Multiplanar, multisequence images of the lumbar spine were acquired without IV contrast. L1-L2: Normal disc appearance without desiccation. No herniation, protrusion or disc bulging. No ca nal stenosis is present. Foramina are patent bilaterally. L2-L3: Normal disc appearance without desiccation. No herniation, protrusion or disc bulging. No ca nal stenosis is present. Foramina are patent bilaterally. L3-L4: Mild disc desiccation. Circumferential disc bulge greatest posteriorly with mild effacement ve ntral thecal sac. No evidence for disc herniation or central stenosis. Foramina are patent bilaterall y. L4-L5: Normal disc appearance without desiccation. No herniation, protrusion or disc bulging. No ca nal stenosis is present. Foramina are patent bilaterally. L5-S1: Normal disc appearance without desiccation. No herniation, protrusion or disc bulging. No ca nal stenosis is present. Foramina are patent bilaterally. Lumbar segments are intact. No paraspinal masses are identified. Conus medullaris has a normal appe arance. IMPRESSION: 1. Mild degenerative disc disease at L3-4 with disc bulging. No herniation or central stenosis identi fied.
== END | disposition home or self-care (01) ==
LOC: RADMRIMAIN 11:45
PROVIDERS: ATTEND Family Medicine
DX: M51.36 Other intervertebral disc degeneration, lumbar region (principal)
CPT/HCPCS: 72148

== ENCOUNTER → 2023-07-08 | Outpatient (CLI) | payer MEDICARE ==
--- NOTE | 2023-07-08 13:27 | MM ---
Reason for Exam: Follow-up at short interval from prior study. Last screening mammogram was performed 7 month(s) ago. Patient History: Menarche at age 14. First Full-Term at age 23. Postmenopausal. Risk Values: Telma 5 year model risk: 1.6%. NCI Lifetime model risk: 4.3%. Prior Study Comparison: 12/21/2015 Bilateral Screening Mammogram, [facility]. 01/06/2019 Bilateral Screening Mammogram, [facility]. 12/03/2022 Bilateral MG 3D screening mammo w/cad, [facility]. Tissue Density: Left: The breast tissue is heterogeneously dense. This may lower the sensitivity of mammography. Findings: Analyzed By CAD. Pattern appears stable. The rounded density in the upper outer anterior left breast is evident on tomographic images. No significant interval change is evident. No suspicious groups of microcalcifications, spiculated or lobular masses, architectural distortion or other secondary signs of malignancy are mammographically apparent. Overall Assessment: Probably benign, BI-RAD 3 Management: Screening Mammogram of both breasts in 6 months. A negative mammogram report should not preclude additional follow up of suspicious palpable abnormalities. Patient should continue monthly self breast exam. A clinical breast exam by your physician is recommended on an annual basis and results should be correlated with mammographic findings. Electronically signed and approved by: Kartik Donald D.O. Radiologis
== END | disposition home or self-care (01) ==
LOC: RADMAMWWP 13:02
PROVIDERS: ATTEND Family Medicine
DX: N60.02 Solitary cyst of left breast (principal); R92.332 Mammographic heterogeneous density, left breast; Z78.0 Asymptomatic menopausal state
CPT/HCPCS: 77061; 77065

== ENCOUNTER → 2023-09-16 | Outpatient (CLI) | payer MEDICARE ==
--- NOTE | 2023-09-16 14:23 | P.PN ---
Subjective DATE: 09/16/2023 FOLLOW UP VISIT. Patient with obstructive sleep apnea hypopnea syndrome return to sleep center for follow-up visit. Information from previous visit have been reviewed. Patient is using PAP equipment every night for the whole night, getting PAP supplies in time. The patient does not have significant problems with the mask, PAP unit and humidification. [place] sleepiness scale is increased to 12. I checked information from PAP unit. PAP unit pressure maximal inspiratory pressure 20, minimal expiratory pressure 6, average pressure 16.9/12.9 cm H2O. Usage is 100% for more then 4 hours, average 13.3 hours per night. Leak is 26 l/m, which is in acceptable range. Apnea Hypopnea Index is borderline 5.3. MEDICATIONS:1. Verapamil 240 mg once a day 2. Lisinopril 20 mg once a day 3. Atorvastatin 20 mg once a day 4. Omeprazole 20 mg once a day 5. Paroxetine 40 mg once a day 6. Lorazepam 0.5 mg twice a day During physical exam: GENERAL: A pleasant patient without any distress. VITAL SIGNS: Please see below. HEENT: PERRLA, EOMI.low position of soft palate, Mallapati 4 . NECK: Supple. No JVD. LUNGS: Clear to percussion and to auscultation. Good air exchange. No wheezing or rhonchi. HEART: S1, S2 regular. ABDOMEN: Soft and nontender. Obese EXTREMITIES: No clubbing or cyanosis. INSULATION SUPERVISOR: Awake, alert, and oriented x3. No focal deficit. Impressions: 1. Obstructive sleep apnea-hypopnea syndrome. Patient demonstrated great compliance with treatment, benefiting from treatment. 2. Obesity, patient increased weight on 3 pounds comparing with previous visit. 3. Hypertension. 4. Hyperlipidemia. 5. History of anxiety. 6. Acid reflux. 7. History of headaches. 8. Status post bilateral knee replacement. Plan: 1. Continue using PAP equipment every night for the whole night. 2. To change air filter at least 1-2 times per month. 3. PAP unit should stay lower then position of the head. 4. Advised patient to remove all remaining water from humidifier canister daily and make it dry after each usage. Refill canister with fresh distilled water before each usage. 5. Sleep hygiene with regular time in bed for at least 8 hours. 6. Precautions related to driving. No driving if feel any sleepiness. 7. I will maintain prescription for PAP supplies including mask, tube, filters. 8. Watching and aggressive losing weight. 9. Follow up visit in 6 months or earlier if patient has any problems. Thank you very much for allowing me to participate in the management of your patient. Juan José Vernon MD, PhD, FAASM. Diplomat of [place] [employer], Sleep Medicine Board by [place] [employer] Sales Representative [employer] [facility] Objective - Vital Signs Vital signs: Vital Signs Temp 97.7 F 09/16/23 14:07 Pulse 94 09/16/23 14:07 Resp 20 09/16/23 14:07 BP 148/80 09/16/23 14:07 Pulse Ox 93 L 09/16/23 14:07 FiO2 Intake & Output 09/15/23 09/16/23 09/16/23 18:59 06:59 18:59 Weight 104.338 kg
[2023-09-16 14:35] VITALS: BP 148/80; PULSE 94; RESP 20; TEMP 97.7
== END ==
LOC: 3 N SLEEP 13:24
PROVIDERS: ATTEND Internal Medicine
DX: G47.33 Obstructive sleep apnea (adult) (pediatric) (principal); E66.9 Obesity, unspecified; I10 Essential (primary) hypertension; E78.5 Hyperlipidemia, unspecified; F41.9 Anxiety disorder, unspecified; K21.9 Gastro-esophageal reflux disease without esophagitis; Z96.653 Presence of artificial knee joint, bilateral; Z86.69 Personal history of other diseases of the nervous system and sense organs; Z99.89 Dependence on other enabling machines and devices; Z79.899 Other long term (current) drug therapy; Z88.0 Allergy status to penicillin; Z68.42 Body mass index [BMI] 45.0-49.9, adult
CPT/HCPCS: 99212

== ENCOUNTER → 2024-01-26 | Outpatient (CLI) | payer MEDICARE ==
--- NOTE | 2024-01-26 14:06 | BD ---
EXAMINATION TYPE: Axial Bone Density DATE OF EXAM: 01/26/2024 CLINICAL HISTORY: 73 years old Female. ICD-10 CODE: Z78.0 ASYMPTOMATIC MENOPAUSAL STATE Height: 5 ft Weight: 229 FRAX RISK QUESTIONS: Alcohol (3 or more units per day): no Family History (Parent hip fracture): yes Glucocorticoids (More than 3mos): no (Ex: prednisone, prednisolone, methylprednisolone, dexamethasone, and hydrocortisone). History of Fracture in Adulthood: no Secondary Osteoporosis: 1. Type 1 Diabetes: type 2 2. Hyperthyroidism: no 3. Menopause before 45: no 4. Malnutrition: no 5. Chronic liver disease: no Rheumatoid Arthritis: no Current Tobacco Use: no RISK FACTORS HISTORY OF: Surgery to Spine/Hip(right/left)/Wrist (right/left): no MEDICATIONS: Thyroid Medications: none Osteoporosis Medications: none EXAM MEASUREMENTS: Bone mineral densitometry was performed using the [employer]. Bone mineral density as measured about the Lumbar spine is: ----- L1-L4(G/cm2): 1.200 T Score Values are as follows: ----- L1: 0.2 ----- L2: -0.4 ----- L3: 0.6 ----- L4: -0.1 ----- L1-L4: 0.2 Z Score Values are as follows: ----- L1: 0.8 ----- L2: 0.2 ----- L3: 1.1 ----- L4: 0.5 ----- L1-L4: 0.7 Bone mineral density has: decreased -5.4 % since study of: 2018 Bone mineral density about the R hip (g/cm2): 0.911 Bone mineral density about the L hip (g/cm2): 0.885 T Score values are as follows: -----R Neck: -0.9 -----L Neck: -1.1 -----R Total: 0.0 -----L Total: 0.0 Z Score values are as follows: -----R Neck: 0.1 -----L Neck: -0.1 -----R Total: 0.7 -----L Total: 0.7 Bone mineral density has: increased 0.4 % since study of: 2019 FRAX%s: The graph provided illustrates a 12.0 % chance for a major osteoporotic fx and a 2.4 % chance for the hips probability for fx in 10 years time. IMPRESSION: Normal (Values between +1 and -1 indicate normal bone mass). Consider repeating this study in 5 year s or sooner if there is some new clinical indication. NOTE: T-SCORE=SD OF THE YOUNG ADULT MEAN.
--- NOTE | 2024-01-27 13:41 | MM ---
Reason for Exam: Screening (asymptomatic). Last mammogram was performed 1 year(s) and 1 month(s) ago. Patient History: Menarche at age 14. First Full-Term at age 23. Postmenopausal. Risk Values: Telma 5 year model risk: 1.6%. NCI Lifetime model risk: 4.3%. Prior Study Comparison: 01/06/2019 Bilateral Screening Mammogram, [facility]. 12/03/2022 Bilateral MG 3D screening mammo w/cad, [facility]. 07/08/2023 Left MG 3D diag mammo w/cad LT, [facility]. Tissue Density: There are scattered areas of fibroglandular density. Findings: Analyzed By CAD. There is no suspicious group of microcalcifications or new suspicious mass in either breast. Overall Assessment: Benign, BI-RAD 2 Management: Screening Mammogram of both breasts in 1 year. . Patient should continue monthly self-breast exams. A clinical breast exam by your physician is recommended on an annual basis. This exam should not preclude additional follow-up of suspicious palpable abnormalities. Note on Telma scores and lifetime risk: 1. A Telma score greater than 3% is considered moderate risk. If this is the case, consider specialist referral to assess eligibility for a risk reducing agent. 2. If overall lifetime risk for the development of breast cancer is 20% or higher, the patient may qualify for future screening with alternating mammogram and breast MRI. Electronically signed and approved by: Vadim Garcia M.D. Radiologis
== END | disposition home or self-care (01) ==
LOC: RADMAMWWP 13:08
PROVIDERS: ATTEND Family Medicine
DX: Z12.31 Encounter for screening mammogram for malignant neoplasm of breast (principal); Z78.0 Asymptomatic menopausal state; R92.323 Mammographic fibroglandular density, bilateral breasts; M85.88 Other specified disorders of bone density and structure, other site
CPT/HCPCS: 77063; 77067; 77080